=== PATIENT | female | born 1965 | race Asian ===

== ENCOUNTER 2017-01-14 21:09 | Emergency (ER) | payer OTHER ==
--- NOTE | 2017-01-14 22:04 | ED Physician Documentation ---
History of Present Illness - Stated complaint Stated Complaint: HEART PALPATATION - Chief complaint Chief Complaint: Cardiac - History obtained from History obtained from: Patient - History of Present Illness Timing: Today Pain level max: 0 Pain level now: 0 Improved by: nothing Worsened by: nothing - Additonal information Additional information: Patient was at work tonight when she felt palpitations. Lasted approx 1 minute. Has occured in the past, normally shorter and not for a year or so. States blood glucose was 99 and HR felt regular, but fast, approx 160bpm. Also had some B hand tingling. Feels normal now. No CP. Had 1 cup of coffee. Is on synthroid. Thyroid checked 2-3 weeks ago. 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, 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, Dilation and currettage - Present Medications Home Medications: Ambulatory Orders Medication Instructions Recorded Confirmed Levothyroxine [Synthroid] 75 mcg PO DAILY 01/11/15 01/11/15 Pantoprazole [Protonix] 40 mg PO DAILY #20 tablet 01/11/15 - Allergies Allergies/Adverse Reactions: Allergies Allergy/AdvReac Type Severity Reaction Status Date / Time bacitracin Allergy Rash Verified 01/14/17 21:22 [From Neosporin (gtk-wdr-cclma)] bacitracin zinc * Allergy Rash Verified 01/14/17 21:22 [From Neosporin (epl-adb-maswh)] neomycin sulfate * Allergy Rash Verified 01/14/17 21:22 [From Neosporin (lwm-hmu-ponse)] polymyxin B Allergy Rash Verified 01/14/17 21:22 [From Neosporin (gdr-ecx-xstbw)] - Social History Does the pt smoke?: No Smoking Status: Never smoker PD ED PE NORMAL - Vitals Vital signs reviewed: Yes - General General: Alert and oriented X 3, No acute distress, Well developed/nourished - HEENT HEENT: Moist mucous membranes - Neck Neck: Supple, no meningeal sign, No JVD, No bruit - Cardiac Cardiac: RRR, No murmur, Strong equal pulses - Respiratory Respiratory: No respiratory distress, Clear bilaterally - Abdomen Abdomen: Soft, Non tender - Derm Derm: Warm and dry - Extremities Extremities: No edema, No calf tenderness / cord - Neuro Neuro: Alert and oriented X 3 - Psych Psych: Normal mood, Normal affect Results - Vitals Vitals: Vital Signs - 24 hr 01/14/17 01/14/17 01/14/17 21:16 21:44 22:18 Temperature 36.7 C Heart Rate 95 90 86 Respiratory 17 16 16 Rate Blood Pressure 193/119 H 156/96 H 137/90 H O2 Saturation 98 99 99 Oxygen O2 Source Room air - EKG (time done) 2157 Rate: Rate (enter#) (77) Rhythm: NSR [place]: Normal Intervals: Normal [place] QRS: Normal Ischemia: Normal ST segments Computer interpretation: Agree with computer - Labs Labs: Laboratory Tests 01/14/17 01/14/17 01/14/17 21:31 21:31 21:31 WBC 8.7 RBC 6.08 H Hgb 12.6 Hct 40.4 MCV 66.5 L MCH 20.7 L MCHC 31.1 L RDW 16.0 H Plt Count 301 MPV 8.5 Neut # 5.2 Lymph # 2.6 [place] # 0.6 Eos # 0.2 Baso # 0.1 Absolute Nucleated RBC 0.00 Nucleated RBCs 0.0 Sodium 139 Potassium 3.4 L Chloride 102 Carbon Dioxide 28 Anion Gap 9.0 BUN 14 Creatinine 0.7 Estimated GFR (MDRD) 88 L Glucose 98 Calcium 9.2 Phosphorus 3.6 Magnesium 2.1 Total Bilirubin 0.3 AST 20 ALT 20 Alkaline Phosphatase 50 Troponin I < 0.04 Total Protein 7.5 Albumin 4.6 Globulin 2.9 Albumin/Globulin Ratio 1.6 Lipase 18 L PD MEDICAL DECISION MAKING - ED course Complexity details: reviewed results, re-evaluated patient, considered differential, d/w patient ED course: Patient is a 51-year-old female who presents to the emergency department with palpitations earlier today. This is since resolved. No chest pain. No acute findings on EKG or arrhythmias on telemetry monitoring. She states that this has happened in the past, though not for several years. We will have her follow -up with her doctor for further evaluation and care. No evidence of acute coronary syndrome or pulmonary embolus. Patient counseled regarding signs and symptoms for which I believe and urgent re-evaluation would be necessary. Patient with good understanding of and agreement to plan and is comfortable going home at this time This document was made in part using voice recognition software. While efforts are made to proofread this document, sound alike and grammatical errors may occur. Departure - Departure Disposition: Home, Self Care Clinical Impression: Palpitations Condition: Good Instructions: ED Palpitations Follow-Up: Grady Trujillo MD [Primary Care Provider] - Within 1 week Comments: The cause of your symptoms is unclear today. Return if you worsen. You need to follow-up with your doctor for further evaluation. Discharge Date/Time: 01/14/17 22:36
[2017-01-14 22:16] LABS: BASOPHILS # (AUTO) 0.1 10^3/uL (0.0-0.1); BASOPHILS % (AUTO) 0.7 %; EOSINOPHILS # (AUTO) 0.2 10^3/uL (0.0-0.7); EOSINOPHILS % (AUTO) 2.5 %; HCT - HEMATOCRIT 40.4 % (37.0-47.0); HGB - HEMOGLOBIN 12.6 g/dL (12.0-16.0); LYMPHOCYTES # (AUTO) 2.6 10^3/uL (1.5-3.5); LYMPHOCYTES % (AUTO) 30.3 %; MEAN CORPUSCULAR HEMOGLOBIN 20.7 pg (27.0-31.0); MEAN CORPUSCULAR HGB CONC 31.1 g/dL (32.0-36.0); MEAN CORPUSCULAR VOLUME 66.5 fL (81.0-99.0); MEAN PLATELET VOLUME 8.5 fL (7.9-10.8); MONOCYTES # (AUTO) 0.6 10^3/uL (0.0-1.0); MONOCYTES % (AUTO) 6.8 %; NEUTROPHILS # (AUTO) 5.2 10^3/uL (1.5-6.6); NEUTROPHILS % (AUTO) 59.7 %; RED BLOOD COUNT 6.08 10^6/uL (4.20-5.40); UNCORRECTED WHITE BLOOD COUNT 8.7 x10^3/uL; WHITE BLOOD COUNT 8.7 x10^3/uL (4.8-10.8)
[2017-01-14 22:18] VITALS: BP 137/90
[2017-01-14 22:20] LABS: ALBUMIN/GLOBULIN RATIO 1.6 (1.0-2.2); BILIRUBIN,TOTAL 0.3 mg/dL (0.2-1.0); CALCIUM 9.2 mg/dL (8.5-10.3); CREATININE 0.7 mg/dL (0.4-1.0); MAGNESIUM 2.1 mg/dL (1.7-2.8); PHOSPHORUS 3.6 mg/dL (2.5-4.6); POTASSIUM 3.4 mmol/L (3.5-5.0); TOTAL PROTEIN 7.5 g/dL (6.7-8.2)
== END 2017-01-14 22:36 | disposition home or self-care (01) ==
LOC: ED 21:09
DX: R00.2 Palpitations (principal); I10 Essential (primary) hypertension; E03.9 Hypothyroidism, unspecified; K21.9 Gastro-esophageal reflux disease without esophagitis
CPT/HCPCS: 36415; 80053; 83690; 83735; 84100; 84484; 85025; 93005; 93010; 99284

== ENCOUNTER 2017-02-25 13:09 | Outpatient (CLI) | payer OTHER | END 2017-02-25 13:10 | disposition home or self-care (01) | LOC: DI 13:09 | DX: R00.2 Palpitations (principal) | CPT/HCPCS: 93306 ==

== ENCOUNTER 2017-03-23 18:52 | Emergency (ER) | payer OTHER ==
[2017-03-23 19:09] LABS: BILIRUBIN,URINE NEGATIVE (NEGATIVE)
[2017-03-23 19:12] LABS: UA w/ MICROSCOPIC CHARGE YES
[2017-03-23 19:21] LABS: UR CULTURE IF IND INDICATED
[2017-03-23] MEDS ORDERED: SODIUM CHLORIDE 0.9% 1,000 ML IV ONE ×2 (19:37→21:21)
[2017-03-23 20:06] LABS: BASOPHILS # (AUTO) 0.1 10^3/uL (0.0-0.1); BASOPHILS % (AUTO) 0.6 %; EOSINOPHILS % (AUTO) 0.1 %; HCT - HEMATOCRIT 41.7 % (37.0-47.0); HGB - HEMOGLOBIN 12.7 g/dL (12.0-16.0); LYMPHOCYTES # (AUTO) 0.6 10^3/uL (1.5-3.5); LYMPHOCYTES % (AUTO) 3.4 %; MEAN CORPUSCULAR HEMOGLOBIN 20.3 pg (27.0-31.0); MEAN CORPUSCULAR HGB CONC 30.6 g/dL (32.0-36.0); MEAN CORPUSCULAR VOLUME 66.5 fL (81.0-99.0); MEAN PLATELET VOLUME 7.5 fL (7.9-10.8); MONOCYTES # (AUTO) 1.1 10^3/uL (0.0-1.0); MONOCYTES % (AUTO) 6.5 %; NEUTROPHILS # (AUTO) 15.3 10^3/uL (1.5-6.6); NEUTROPHILS % (AUTO) 89.4 %; RED BLOOD COUNT 6.27 10^6/uL (4.20-5.40); RED CELL DISTRIBUTION WIDTH 15.3 % (12.0-15.0); UNCORRECTED WHITE BLOOD COUNT 17.1 x10^3/uL; WHITE BLOOD COUNT 17.1 x10^3/uL (4.8-10.8)
[2017-03-23 20:11] LABS: ALBUMIN/GLOBULIN RATIO 1.5 (1.0-2.2); BILIRUBIN,TOTAL 0.6 mg/dL (0.2-1.0); CALCIUM 9.1 mg/dL (8.5-10.3); CREATININE 0.8 mg/dL (0.4-1.0); POTASSIUM 3.4 mmol/L (3.5-5.0); TOTAL PROTEIN 7.6 g/dL (6.7-8.2)
[2017-03-23 20:52] LABS: PLATELET ESTIMATE, MANUAL NORMAL (130-450,000) (NORMAL); PLATELET MORPHOLOGY RARE GIANT PLATELETS (NORMAL)
[2017-03-23 20:53] LABS: WBC MORPHOLOGY (MULTIPLE) NORMAL APPEARANCE (NORMAL)
[2017-03-23] MEDS ORDERED: cefTRIAXone 1 GM VIAL IVP STA (21:53)
--- NOTE | 2017-03-23 21:56 | XRAY Preliminary Report ---
Exam: XR Chest 2 View PA/LAT IMPRESSION: No acute disease. [facility] SITE ID: [id number]
--- NOTE | 2017-03-23 21:58 | XRAY Report ---
EXAM: CHEST RADIOGRAPHY EXAM DATE: 03/23/2017 09:38 PM. CLINICAL HISTORY: Fever. COMPARISON: 01/11/2015. TECHNIQUE: 2 views. FINDINGS: Lungs/Pleura: No localized infiltrate, consolidation, effusion, or pneumothorax. Mediastinum: Heart and mediastinal contours are unremarkable. Other: Mild scoliosis, degenerative changes, and other chronic findings. IMPRESSION: No acute disease. [facility] Referring Provider Line: [phone] SITE ID: [id number]
[2017-03-23] MEDS ORDERED: cefTRIAXone 1 GM VIAL ONE (22:01)
--- NOTE | 2017-03-23 22:05 | ED Physician Documentation ---
History of Present Illness - Stated complaint Stated Complaint: FEVER/CHILLS - Chief complaint Chief Complaint: Fever - History obtained from History obtained from: Patient - History of Present Illness Timing: Today Pain level max: 3 Pain level now: 3 Improved by: tylenol Worsened by: nothing - Additonal information Additional information: Patient is a 51-year-old female who presents to the emergency department with fevers and chills today. Also has dysuria. No cough, no rhinorrhea, no congestion. No nausea, no vomiting, no diarrhea. No abdominal pain. No recent travel. No recent antibiotics. Review of Systems Ten Systems: 10 systems reviewed and negative Constitutional: reports: Fever, Chills Ears: denies: Ear pain Nose: denies: Rhinorrhea / runny nose, Congestion Throat: denies: Sore throat Cardiac: denies: Chest pain / pressure Respiratory: denies: Cough GI: denies: Abdominal Pain, Nausea, Vomiting, Diarrhea : reports: Dysuria, Frequency, Hesitancy Skin: denies: Rash Musculoskeletal: denies: Neck pain, Back pain Neurologic: denies: Headache PD PAST MEDICAL HISTORY - Past Medical History Cardiovascular: Hypertension Endocrine/Autoimmune: HyPOthyroidism GI: GERD - Past Surgical History /[employer]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 [employer]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: section, 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, Dilation and currettage - Present Medications Home Medications: Ambulatory Orders Medication Instructions Recorded Confirmed Levothyroxine [Synthroid] 75 mcg PO DAILY 01/11/15 03/23/17 Pantoprazole [Protonix] 40 mg PO DAILY #20 tablet 01/11/15 03/23/17 Aspirin Chewable [[place] 81 mg PO DAILY 03/23/17 03/23/17 Aspirin] Cephalexin [Keflex] 500 mg PO Q6H #28 capsule 03/23/17 - Allergies Allergies/Adverse Reactions: Allergies Allergy/AdvReac Type Severity Reaction Status Date / Time bacitracin Allergy Rash Verified 01/14/17 21:22 [From Neosporin (ccz-hsc-tcsbo)] bacitracin zinc * Allergy Rash Verified 01/14/17 21:22 [From Neosporin (kpa-ird-hzsod)] neomycin sulfate * Allergy Rash Verified 01/14/17 21:22 [From Neosporin (ctp-hua-almxw)] polymyxin B Allergy Rash Verified 01/14/17 21:22 [From Neosporin (dpr-eeb-rhiik)] - Social History Does the pt smoke?: No Smoking Status: Never smoker PD ED PE NORMAL - Vitals Vital signs reviewed: Yes - General General: Alert and oriented X 3, No acute distress, Well developed/nourished - HEENT HEENT: PERRL, Ears normal, Moist mucous membranes, Pharynx benign - Neck Neck: Supple, no meningeal sign, No adenopathy - Cardiac Cardiac: RRR - Respiratory Respiratory: No respiratory distress, Clear bilaterally - Abdomen Abdomen: Soft, Non tender, Non distended - Back Back: No CVA TTP, No spinal TTP - Derm Derm: Warm and dry, No rash - Neuro Neuro: Alert and oriented X 3 - Psych Psych: Normal mood, Normal affect Results - Vitals Vitals: Vital Signs - 24 hr 03/23/17 03/23/17 03/23/17 18:54 19:28 20:42 Temperature 37.0 C 37.4 C Heart Rate 128 H 118 H 110 H Respiratory 17 22 18 Rate Blood Pressure 155/88 H 133/75 H 114/76 O2 Saturation 98 97 97 03/23/17 03/23/17 03/23/17 21:12 21:16 22:10 Temperature 37.3 C 37.2 C Heart Rate 100 101 H Respiratory 18 18 Rate Blood Pressure 123/75 124/79 O2 Saturation 100 100 Oxygen O2 Source Room air - Labs Labs: Laboratory Tests 03/23/17 03/23/17 03/23/17 18:55 19:50 19:50 WBC 17.1 H RBC 6.27 H Hgb 12.7 Hct 41.7 MCV 66.5 L MCH 20.3 L MCHC 30.6 L RDW 15.3 H Plt Count 250 MPV 7.5 L Neut # 15.3 H Lymph # 0.6 L [place] # 1.1 H Eos # 0.0 Baso # 0.1 Absolute Nucleated RBC 0.00 Nucleated RBCs 0.0 Manual Slide Review Indicated WBC Morphology NORMAL APPEARANCE Platelet Estimate NORMAL (130-450,000) Platelet Morphology RARE GIANT PLATELETS RBC Morph Micro Appear 2+ MICROCYTOSIS Sodium 139 Potassium 3.4 L Chloride 106 Carbon Dioxide 24 Anion Gap 9.0 BUN 18 Creatinine 0.8 Estimated GFR (MDRD) 75 L Glucose 180 H Calcium 9.1 Total Bilirubin 0.6 AST 29 ALT 22 Alkaline Phosphatase 58 Total Protein 7.6 Albumin 4.5 Globulin 3.1 Albumin/Globulin Ratio 1.5 Lipase 27 Urine Color YELLOW Urine Clarity CLEAR Urine pH 6.0 Ur Specific [place] <=1.005 Urine Protein NEGATIVE Urine Glucose (UA) NEGATIVE Urine Ketones NEGATIVE Urine Occult Blood SMALL H Urine Nitrite NEGATIVE Urine Bilirubin NEGATIVE Urine Urobilinogen 0.2 (NORMAL) Ur Leukocyte Esterase TRACE H Urine RBC 0-5 Urine WBC 4-5 Ur Squamous Epith Cells RARE Squamous Urine Bacteria Rare Ur Microscopic Review INDICATED Urine Culture Comments INDICATED - Rads (name of study) cxr Radiology: Prelim report reviewed, EMP read contemporaneously, See rad report ( No acute disease) PD MEDICAL DECISION MAKING - ED course Complexity details: reviewed results, re-evaluated patient, considered differential, d/w patient, d/w family ED course: Patient is well-appearing, nontoxic. Appears to have a UTI and was given Rocephin for this. Will place on antibiotics for home as well. Heart rate decreased with IV fluids. Blood pressure remained stable. Does not appear septic. Patient feels much improved. Tolerating p.o. without difficulty. Abdomen is soft, nontender nondistended on serial examination. Patient and family counseled regarding signs and symptoms for which I believe and urgent re- evaluation would be necessary. Patient with good understanding of and agreement to plan and is comfortable going home at this time This document was made in part using voice recognition software. While efforts are made to proofread this document, sound alike and grammatical errors may occur. Departure - Departure Disposition: 01 Home, Self Care Clinical Impression: Fever Qualifiers: Fever type: unspecified Qualified Code(s): R50.9 - Fever, unspecified UTI (urinary tract infection) Qualifiers: Urinary tract infection type: acute cystitis Hematuria presence: without hematuria Qualified Code(s): N30.00 - Acute cystitis without hematuria Condition: Good Instructions: ED Fever Unconf Cause, ED UTI Cystitis Female Follow-Up: Grady Trujillo MD [Primary Care Provider] - Within 1 week Prescriptions: Cephalexin [Keflex] 500 mg PO Q6H #28 capsule Comments: Take all antibiotics until gone. Return if you worsen. Forms: Activity restrictions Discharge Date/Time: 03/23/17 22:45
[2017-03-23 22:11] VITALS: BP 124/79
== END 2017-03-23 22:45 | disposition home or self-care (01) ==
LOC: ED 18:52
DX: R50.9 Fever, unspecified (principal); N30.00 Acute cystitis without hematuria; I10 Essential (primary) hypertension; Z79.82 Long term (current) use of aspirin
CPT/HCPCS: 36415; 71020; 80053; 81001; 81003; 83690; 85025; 87077; 87086; 96361; 96374; 99283; 99284

== ENCOUNTER 2017-12-21 12:58 | Outpatient (CLI) | payer OTHER | END 2017-12-21 12:59 | disposition home or self-care (01) | LOC: DI 12:58 | PROVIDERS: ATTEND Family Medicine | DX: R01.1 Cardiac murmur, unspecified (principal); G47.30 Sleep apnea, unspecified; R03.0 Elevated blood-pressure reading, without diagnosis of hypertension | CPT/HCPCS: 93306 ==

== ENCOUNTER 2018-01-12 10:48 | Outpatient (CLI) | payer OTHER | END 2018-01-12 10:49 | disposition home or self-care (01) | LOC: SC 10:48 | PROVIDERS: ATTEND Nurse Practitioner Family | DX: G47.10 Hypersomnia, unspecified (principal); R06.83 Snoring; R53.83 Other fatigue; R03.0 Elevated blood-pressure reading, without diagnosis of hypertension | CPT/HCPCS: 99204 ==

== ENCOUNTER 2018-03-02 20:44 | Outpatient (CLI) | payer OTHER | END 2018-03-02 20:45 | disposition home or self-care (01) | LOC: SC 20:44 | PROVIDERS: ATTEND Internal Medicine Pulmonary Disease | DX: G47.33 Obstructive sleep apnea (adult) (pediatric) (principal) | CPT/HCPCS: 95810 ==

== ENCOUNTER 2018-04-04 11:15 | Outpatient (CLI) | payer OTHER | END 2018-04-04 11:16 | disposition home or self-care (01) | LOC: SC 11:15 | PROVIDERS: ATTEND Nurse Practitioner Family | DX: G47.33 Obstructive sleep apnea (adult) (pediatric) (principal) | CPT/HCPCS: 99212; 99214 ==

== ENCOUNTER 2018-05-06 12:05 | Emergency (ER) | payer OTHER ==
[2018-05-06 12:25] VITALS: BP 153/84
--- NOTE | 2018-05-06 13:21 | ED Physician Documentation ---
PD HPI SKIN - Stated complaint Stated Complaint: RT EYE SWELLING/WOUND - Chief complaint Chief Complaint: Wound - History obtained from History obtained from: Patient - History of Present Illness Timing - onset: How many days ago (5) Timing - duration: Days (5) Timing - details: Gradual onset, Still present Location: Face Quality / character: Itchy, Burning, Vesicular, Crusted Associated symptoms: Myalgias, Facial swelling. 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 She has minimal surrounding erythema and she does have some swelling in front of her right ear. 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, 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, Dilation and currettage - Present Medications Home Medications: Ambulatory Orders Medication Instructions Recorded Confirmed Levothyroxine [Synthroid] 75 mcg PO DAILY 01/11/15 05/06/18 Aspirin Chewable [[place] 81 mg PO DAILY 03/23/17 05/06/18 Aspirin] Metoprolol Succinate 25 mg DAILY 05/06/18 05/06/18 [place]-3/Dha/Epa/Fish Oil [Fish Oil 1 cap DAILY 05/06/18 05/06/18 1,000 mg Softgel] - Allergies Allergies/Adverse Reactions: Allergies Allergy/AdvReac Type Severity Reaction Status Date / Time bacitracin Allergy Rash Verified 01/14/17 21:22 [From Neosporin (oqx-caj-gxcum)] bacitracin zinc * Allergy Rash Verified 01/14/17 21:22 [From Neosporin (ode-tto-gplyz)] neomycin sulfate * Allergy Rash Verified 01/14/17 21:22 [From Neosporin (hay-pul-wexfs)] polymyxin B Allergy Rash Verified 01/14/17 21:22 [From Neosporin (jzy-mad-pnnde)] - Social History Does the pt smoke?: No Smoking Status: Never smoker PD ED PE NORMAL - Vitals Vital signs reviewed: Yes (hypertensive ) - General General: Alert and oriented X 3, No acute distress, Well developed/nourished Results - Vitals Vitals: Vital Signs - 24 hr 05/06/18 12:21 Temperature 36.9 C Heart Rate 72 Respiratory 16 Rate Blood Pressure 153/84 H O2 Saturation 100 Oxygen O2 Source Room air PD MEDICAL DECISION MAKING - ED course Complexity details: considered differential, d/w patient ED course: 52-year-old female with what appears to be shingles to the right sikh appears to be about 5 days into the course she seems to be recovering well from this is bothered very little by this. She does have some preauricular lymphadenitis and I suspect her condition is herpes zoster. At day #5 specific antiviral therapy is not indicated. - Sepsis Event Vital Signs: Vital Signs - 24 hr 05/06/18 12:21 Temperature 36.9 C Heart Rate 72 Respiratory 16 Rate Blood Pressure 153/84 H O2 Saturation 100 Oxygen O2 Source Room air Departure - Departure Disposition: 01 Home, Self Care Clinical Impression: Zoster Qualifiers: Herpes zoster complications: without complications Qualified Code(s): B02.9 - Zoster without complications Instructions: ED Shingles Follow-Up: TD WRIGHT DO [Primary Care Provider] - Comments: Today in the Emergency Department your blood pressure was elevated. This can happen from the stress of the visit itself, from a current illness or circumstance or from uncontrolled hypertension. If you take blood pressure medications take your usual mediations, have your blood pressure re-checked in an appropriate setting and follow up any elevation with your primary care doctor.
== END 2018-05-06 13:32 | disposition home or self-care (01) ==
LOC: ED 12:05
DX: B02.9 Zoster without complications (principal); I10 Essential (primary) hypertension; E03.9 Hypothyroidism, unspecified; Z79.82 Long term (current) use of aspirin
CPT/HCPCS: 99282; 99283

== ENCOUNTER 2019-02-10 00:05 | Emergency (ER) | payer OTHER ==
[2019-02-10] MEDS ORDERED: RALTEGRAVIR 400 MG TABLET PO STA (02:15)
[2019-02-10] MEDS ORDERED: lamiVUDine/ZIDOVUDINE 150 MG/300 MG TABLET PO STA (02:15)
--- NOTE | 2019-02-10 02:17 | ED Physician Documentation ---
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 She then noticed that a suture needle was on the back of her phone where there is a small magnet. she believes the suture had slipped out of a sharps container in the ED and became attracted to the magnet on her phone. She is UTD on immunizations including hepatitis B series. It is unknown if the suture was used and, if so, who it was used on. 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, Dilation and currettage - Present Medications Home Medications: Ambulatory Orders Medication Instructions Recorded Confirmed Levothyroxine [Synthroid] 75 mcg PO DAILY 01/11/15 05/06/18 Aspirin Chewable [[place] 81 mg PO DAILY 03/23/17 05/06/18 Aspirin] Metoprolol Succinate 25 mg DAILY 05/06/18 05/06/18 [place]-3/Dha/Epa/Fish Oil [Fish Oil 1 cap DAILY 05/06/18 05/06/18 1,000 mg Softgel] Emtricitabine/Tenofovir [Truvada 1 each PO DAILY #2 tablet 02/10/19 200 mg-300 mg Tablet] Raltegravir [Isentress] 400 mg PO BID #5 tablet 02/10/19 - Allergies Allergies/Adverse Reactions: Allergies Allergy/AdvReac Type Severity Reaction Status Date / Time bacitracin Allergy Rash Verified 01/14/17 21:22 [From Neosporin (anx-dnl-ykold)] bacitracin zinc * Allergy Rash Verified 01/14/17 21:22 [From Neosporin (ahd-lgb-eorsj)] neomycin sulfate * Allergy Rash Verified 01/14/17 21:22 [From Neosporin (jzo-hwr-msuoh)] polymyxin B Allergy Rash Verified 01/14/17 21:22 [From Neosporin (thj-qtn-latvo)] - Social History Does the pt smoke?: No Smoking Status: Never smoker Does the pt drink ETOH?: No Does the pt have substance abuse?: No - Immunizations Immunizations are current?: Yes PD ED PE NORMAL - Vitals Vital signs reviewed: Yes - General General: Alert and oriented X 3, No acute distress, Well developed/nourished - Derm Derm: Normal color, Warm and dry, Other (tiny puncture right third digit fingertip without bleeding or tenderness) Results - Vitals Vitals: Vital Signs - 24 hr 02/10/19 02/10/19 00:08 02:47 Temperature 37.0 C Heart Rate 73 70 Respiratory 18 18 Rate Blood Pressure 150/90 H 154/92 H O2 Saturation 97 99 Oxygen O2 Source Room air - Labs Labs: Laboratory Tests 02/10/19 02/10/19 00:25 02:25 WBC 7.2 RBC 5.89 H Hgb 12.5 Hct 39.8 MCV 67.6 L MCH 21.2 L MCHC 31.4 L RDW 15.6 H Plt Count 301 MPV 7.4 L Sodium 141 Potassium 3.7 Chloride 103 Carbon Dioxide 27 Anion Gap 11.0 BUN 18 Creatinine 0.7 Estimated GFR (MDRD) 87 L Glucose 113 H Calcium 10.0 Total Bilirubin 0.7 AST 25 ALT 31 Alkaline Phosphatase 54 Total Protein 7.8 Albumin 4.5 Globulin 3.3 Albumin/Globulin Ratio 1.4 PD MEDICAL DECISION MAKING - ED course Complexity details: considered differential, d/w patient ED course: Discussed risks and benefits of HIV prophylaxis, and patient wants HIV prophylaxis medication. This was given in ED and rx provided for 3 days, and she is to f/u w/ [facility] on Tuesday Departure - Departure Disposition: Home, Self Care Clinical Impression: Needle stick injury of finger Qualifiers: Encounter type: initial encounter Qualified Code(s): S61.239A - Puncture wound without foreign body of unspecified finger without damage to nail, initial encounter Condition: Good Instructions: ED Body Fluid Exp HC Worker Follow-Up: TD WRIGHT DO [Primary Care Provider] - Prescriptions: Emtricitabine/Tenofovir [Truvada 200 mg-300 mg Tablet] 1 each PO DAILY #2 tablet Raltegravir [Isentress] 400 mg PO BID #5 tablet Discharge Date/Time: 02/10/19 02:50
[2019-02-10 02:33] LABS: ALBUMIN 4.5 g/dL (3.2-5.5); ALBUMIN/GLOBULIN RATIO 1.4 (1.0-2.2); BILIRUBIN,TOTAL 0.7 mg/dL (0.2-1.0); CREATININE 0.7 mg/dL (0.4-1.0); TOTAL PROTEIN 7.8 g/dL (6.7-8.2)
[2019-02-10 02:36] LABS: HGB - HEMOGLOBIN 12.5 g/dL (12.0-16.0); MEAN CORPUSCULAR HEMOGLOBIN 21.2 pg (27.0-31.0); MEAN CORPUSCULAR HGB CONC 31.4 g/dL (32.0-36.0); MEAN CORPUSCULAR VOLUME 67.6 fL (81.0-99.0); MEAN PLATELET VOLUME 7.4 fL (7.9-10.8); RED BLOOD COUNT 5.89 10^6/uL (4.20-5.40); RED CELL DISTRIBUTION WIDTH 15.6 % (12.0-15.0); WHITE BLOOD COUNT 7.2 x10^3/uL (4.8-10.8)
[2019-02-10 02:48] VITALS: BP 154/92
[2019-02-12 15:06] LABS: HEPATITIS C ANTIBODY NON-REACTIVE (NON-REACTIVE)
[2019-02-12 16:16] LABS: HIV AG/AB 4TH GEN NON-REACTIVE (NON-REACTIVE)
== END 2019-02-10 02:50 | disposition home or self-care (01) ==
LOC: ED 00:05
DX: S61.232A Puncture wound without foreign body of right middle finger without damage to nail, initial encounter (principal); Z77.21 Contact with and (suspected) exposure to potentially hazardous body fluids; W46.1XXA Contact with contaminated hypodermic needle, initial encounter; Y93.89 Activity, other specified; Y92.239 Unspecified place in hospital as the place of occurrence of the external cause; I10 Essential (primary) hypertension
CPT/HCPCS: 80053; 85027; 86317; 86803; 87389; 99282; 99283; A9270; 36415

== ENCOUNTER 2019-04-12 09:54 | Day surgery (SDC) | payer BC, OTHER ==
[2019-04-12] MEDS ORDERED: LACTATED RINGERS 1,000 ML IV ONE (10:31)
[2019-04-12] MEDS ORDERED: fentaNYL 100 MCG/2 ML VIAL IVP ONE (12:12)
[2019-04-12] MEDS ORDERED: MIDAZOLAM 2 MG/2 ML VIAL IVP ONE (12:12)
[2019-04-12 13:09] VITALS: BP 107/65
== END 2019-04-12 09:55 | disposition home or self-care (01) ==
LOC: SDS 09:54
PROVIDERS: ATTEND Surgery
PROC: 0DJD8ZZ Inspection of Lower Intestinal Tract, Via Natural or Artificial Opening Endoscopic (ICD-10-PCS; principal; 2019-04-12 11:15)
DX: Z12.11 Encounter for screening for malignant neoplasm of colon (principal); K64.8 Other hemorrhoids; G47.30 Sleep apnea, unspecified; Z86.010 Personal history of colon polyps
CPT/HCPCS: 45378; J7120

== ENCOUNTER 2019-07-16 12:47 | Outpatient (CLI) | payer BC, OTHER ==
--- NOTE | 2019-07-16 13:41 | SLEEP CARE CONSULTATION ---
Information from patient questionnaire entered by Zofia Perla. I have reviewed and concur with the information entered by Zofia Perla. This document represents the service I personally performed and the decisions made by me, Mariana Dawson, RN, MSN, [employer]. History of Present Illness Previous diagnosis: Mild, Obstructive Sleep Apnea-Hypopnea Syndrome AHI: 8.6 Reason for follow up: annual (She was set up right away but just informed of her compliance goals from [facility] and set up appointment. ) Equipment type: CPAP Equipment obtained from: [employer] Mask style: Nasal pillows Backup mask available: Yes Last cushion change: a few weeks ago Prior sleep studies: Yes CPAP Compliance Data - Data Reviewed with Patient Average duration of nightly device use: 6h 57m Compliance rate %: 96.7 Current pressure setting (cmH2O): 4-15 Humidity settin Heated hose settin Average residual AHI: 0.7 (90% pressure of 6.9cmH20) Average large leak: 18s Subjective Patient concerns: reports: other (When has had a cold, it is hard to use CPAP ). denies: aerophagia, mask discomfort, air blowing in eyes, mask leak noise, condensation in mask/hose, nasal congestion, dry mouth, nose, throat, epistaxis Observed to snore while using device: No Current pressure setting perceived as: comfortable On therapy, patient: reports: sleeping better, awakening more refreshed, being more awake and alert during the day, more rested overall. denies: drowsiness while driving Initial [place] Sleepiness Scale score: 8 Current [place] Sleepiness Scale score: 3 Allergies and Home Medications Known drug allergies: Yes (bacitracin topical, neomycin ) Home medication list reviewed: Yes Allergy and home medication list: Medication Name (generic/name brand) Strength & Dosage Synthroid 75mcg tab one daily Aspirin 81mg tab one daily Zyrtec 10mg tab one daily for allergies, prn Benadryl 25mg tab, prn Multivitamins Tab one daily Celebrex 200mg tab one daily, prn Flonase nasal spray 50mcg 1-2 sprays daily seasonally Fish Oil One tab daily Metoprolol Succinate 25mg tab one daily Review of Systems Review of systems same as previous: Yes Physical Exam Blood Pressure: 120/80 Cuff size: regular Heart Rate: 74 O2 Saturation: 98 Height: 5 ft 2.25 in Weight: 128 lb 12.8 oz Weight change since last visit: gained 2 pounds Body Mass Index: 23.3 BMI Classification: Healthy weight Impression and Plan 1. Obstructive Sleep Apnea-Hypopnea Syndrome, mild, with good treatment compliance and good apnea control. On CPAP therapy, the patient has better sleep quality and is more rested overall. Since 90% average pressure is 6.9cmH20, I will change her CPAP pressure to 7cmH20. She was shown to use the ramp at initiation if needed. If pressure uncomfortable, she is to call me. To improve use of CPAP when nasal congestion such as a cold or allergies, she is advised to use her saline nasal spray to clear nose of dried secretions prior to CPAP use to clear nose of dried secretions and faciltate nasal breathing. In addition, she can use a steamy shower to facilitate nasal drainage. Supply replacement list reviewed and questions answered. Patient's apnea severity and rationale for treatment to reduce apnea, improve sleep quality and reduce cardiovascular and cerebrovascular events was reviewed. I also reviewed the benefit of consistent device use of CPAP for arrhythmia. Since her apnea is more severe supine, she is advised to avoid supine sleep with pillow positioning. * * Change CPAP pressure to 7 cmH2O * implement methods to reduce nasal congestion * Notify me if snoring with mask or feeling that the pressure is too much or too little * Attempt to lose weight * Return for follow up in 1year , or sooner if concerns arise I spent 100% of this 30 minute visit face to face with the patient with greater than 50% of this was spent time counseling the patient and coordination of care.
[2019-07-16 13:42] VITALS: BP 120/80
== END 2019-07-16 12:48 | disposition home or self-care (01) ==
LOC: SC 12:47
PROVIDERS: ATTEND Nurse Practitioner Family
DX: G47.33 Obstructive sleep apnea (adult) (pediatric) (principal)
CPT/HCPCS: 99212; 99214

== ENCOUNTER 2019-08-09 23:44 | Outpatient (CLI) | payer OTHER, BC ==
[2019-08-11 12:01] LABS: HEPATITIS B SURFACE AB QN IMM 17 mIU/mL (> OR = 10); HEPATITIS C ANTIBODY NON-REACTIVE (NON-REACTIVE)
[2019-08-13 16:00] LABS: HIV AG/AB 4TH GEN NON-REACTIVE (NON-REACTIVE)
== END 2019-08-09 23:45 | disposition home or self-care (01) ==
LOC: LAB 23:44
PROVIDERS: ATTEND Internal Medicine
DX: Z57.9 Occupational exposure to unspecified risk factor (principal)
CPT/HCPCS: 36415; 86317; 86803; 87389

== ENCOUNTER 2020-02-07 17:46 | Outpatient (CLI) | payer OTHER, BC ==
[2020-02-08 12:40] LABS: HIV AG/AB 4TH GEN NON-REACTIVE (NON-REACTIVE)
[2020-02-08 13:06] LABS: HEPATITIS B SURFACE AB QN IMM 7 mIU/mL (> OR = 10); HEPATITIS C ANTIBODY NON-REACTIVE (NON-REACTIVE)
== END 2020-02-07 17:47 | disposition home or self-care (01) ==
LOC: LAB 17:46
PROVIDERS: ATTEND Emergency Medicine
DX: T75.89XA Other specified effects of external causes, initial encounter (principal)
CPT/HCPCS: 36415; 86317; 86803; 87389

== ENCOUNTER 2020-08-11 11:36 | Outpatient (CLI) | payer BC, OTHER ==
--- NOTE | 2020-08-11 12:58 | SLEEP CARE CONSULTATION ---
Information from patient questionnaire entered by Edie Steele. I have reviewed and concur with the information entered by Edie Steele. This document represents the service I personally performed and the decisions made by me, Arcelia Thompson MD, [facility]. History of Present Illness Service Date and Time: 08/11/2020 1136 Previous diagnosis: Mild, Obstructive Sleep Apnea-Hypopnea Syndrome AHI: 8.6 (in 2018) Reason for follow up: annual (last seen 06/2019) Equipment type: CPAP Equipment obtained from: [employer] Mask style: Nasal pillows Prior sleep studies: Yes Year and [facility] HPI additional information: HPI: Ms. Gonzalez was returns today to follow up on the nasal CPAP therapy. She was diagnosed to have mild obstructive sleep apnea-hypopnea syndrome. The patient wears nasal pillows. She reports using the device nightly and all through the night. The compliance data show usage in 171 out of the past 180 nights, averaging 6.2 hours a night. The > 4 hour compliance rate for the past 180 days is 89.4%. She complained of no particular problem with the device such as soreness on the face, dry nose, epistaxis, nasal congestion or headache. She thinks that the pressure 7 cmH2O is comfortable. On the CPAP therapy she notices improvement in her sleep quality, and that she wakes up feeling fresher in the morning and more awake/alert during the day. The [place] Sleepiness Sca le score 3. Her notices no snore at all. He uses a CPAP as well. The average residual AHI is 0.9; and average time in large leak per day, 1 minute. CPAP Compliance Data - Data Reviewed with Patient Average duration of nightly device use: 6 hr 14 min Compliance rate %: 89.4 (180 days) Current pressure setting (cmH2O): 7 Humidity settin Heated hose settin Average residual AHI: 0.9 Average large leak: 1 min 4 sec Subjective Missed days of use due to: reports: travel Patient concerns: reports: dry mouth, nose, throat Current pressure setting perceived as: comfortable Initial [place] Sleepiness Scale score: 8 (in 2018) Current [place] Sleepiness Scale score: 3 Allergies and Home Medications Drug allergies reviewed: Yes Home medication list reviewed: Yes Review of Systems Review of systems same as previous: Yes Physical Exam Vital signs obtained and entered by: To minimize the risk of COVID-19 exposure, detailed exam was not performed. Height: 5 ft 2.25 in Weight: 128 lb Weight change since last visit: +6 Body Mass Index: 23.2 BMI Classification: Healthy weight Impression and Plan IMPRESSION: 1. Obstructive Sleep Apnea-Hypopnea Syndrome, mild (AHI was 8.6 in 2018) with the patient doing well on nasal CPAP therapy. She continues to have excellent compliance and significant clinical improvement. The current pressure appears effective and comfortable. Her mask fits well. Overall, she is very satisfied with treatment and plans to continue with it long-term. Because the residual AHI is very low, I will lower the pressure a little. PLAN: 1. Device set to autoCPAP mode with pressure range 5 - 7 cmH2O via the modem. 2. Try [employer]Med N30i mask and P30i nasal pillows. 4. Return in one year for follow up or earlier if there is any problem with the treatment. Visit Type: In Office Time Spent with Patient (minutes): 15 Provider Statement: I spent 100% of the Face to Face Visit with the patient with greater than 50% spent counseling the patient and coordination of care.
== END 2020-08-11 11:37 | disposition home or self-care (01) ==
LOC: SC 11:36
PROVIDERS: ATTEND Internal Medicine Pulmonary Disease
DX: G47.33 Obstructive sleep apnea (adult) (pediatric) (principal)
CPT/HCPCS: 99212; 99213

== ENCOUNTER 2021-12-29 08:56 | Outpatient (CLI) | payer BC, OTHER ==
--- NOTE | 2022-01-05 16:06 | Mammography Report ---
BILATERAL DIGITAL SCREENING MAMMOGRAM 3D/2D: 12/29/2021 CLINICAL: Family history of breast cancer. Routine screening. No prior exams were available for comparison. There are scattered fibroglandular elements in both br easts. No significant masses, calcifications, or other findings are seen in either breast. IMPRESSION: NEGATIVE There is no mammographic evidence of malignancy. A 1 year screening mammogram is recommended. This exam was interpreted at Station ID: [id number]. NOTE: For mammograms, a report in lay terms will be sent to the patient. Approximately 15% of breast malignancies will not be visualized mammographically. In the management of a palpable breast mass, a negative mammogram must not discourage biopsy of a clinically suspicious lesion. Electronically Signed By: Rowan noble/michael:01/05/2022 10:41:04 ACR BI-RADS Category 1: Negative 3341F PARENCHYMAL PATTERN: (A) - The breast(s) demonstrate(s) scattered fibroglandular densities. BI-RADS CATEGORY: (1) - 1 RECOMMENDATION: (ANNUAL) - Recommend routine annual screening mammography. [id number] 1 year screening LATERALITY: (B)
== END 2021-12-29 08:57 | disposition home or self-care (01) ==
LOC: DI.N 08:56
DX: Z12.31 Encounter for screening mammogram for malignant neoplasm of breast (principal); Z80.3 Family history of malignant neoplasm of breast

== ENCOUNTER 2022-09-20 13:07 | Outpatient (CLI) | payer BC, OTHER ==
[2022-09-20 18:08] VITALS: BP 150/84
--- NOTE | 2022-09-20 18:08 | SLEEP CARE CONSULTATION ---
Information from patient questionnaire entered by Valentin Villa. I have reviewed and concur with the information entered by Valentin Villa. This document represents the service I personally performed and the decisions made by me, Arcelia Thompson MD, [facility]. History of Present Illness Service Date and Time: 09/20/2022 1307 Previous diagnosis: Mild, Obstructive Sleep Apnea-Hypopnea Syndrome AHI: 8.6 (in 2018) Reason for follow up: annual (LAST SEEN 07/2020) Equipment type: CPAP (PEREZ) Equipment obtained from: [employer] Mask style: Nasal pillows Prior sleep studies: Yes Year and Where: 2017 - [facility] HPI additional information: Ms. Gonzalez was returns today to follow up on the nasal CPAP therapy. She was diagnosed to have mild obstructive sleep apnea-hypopnea syndrome. The patient wears nasal pillows. She reports using the device nightly and all through the night. The compliance data show usage in 170 out of the past 180 nights, averaging 6.9 hours a night. The > 4 hour compliance rate for the past 180 days is 98.4%. She complained of no particular problem with the device such as soreness on the face, dry nose, epistaxis, nasal congestion or headache. She thinks that the pressure 5 - 7 cmH2O is comfortable. On the CPAP therapy she notices improvement in her sleep quality, and that she wakes up feeling fresher in the morning and more awake/alert during the day. The [place] Sleepiness Sc jacob score 4. Her notices no snore at all. He uses a CPAP as well. The average residual AHI is 1.3; and average time in large leak per day, 10 seconds. Her equipment comes from [employer]. Sleep Study - Results Prior sleep studies: Yes Year and Where: 2018 - [facility] Sleep CPAP Compliance Data - Data Reviewed with Patient Average duration of nightly device use: 6HRS 56MIN 15SEC Compliance rate %: 99.4 (03/20/2022-09/15/22) Current pressure setting (cmH2O): 5-7 Average residual AHI: 1.3 Subjective Initial [place] Sleepiness Scale score: 8 (in 2018) Current [place] Sleepiness Scale score: 4 (09/20/22) Allergies and Home Medications Drug allergies reviewed: Yes Home medication list reviewed: Yes Allergy and home medication list: Allergies bacitracin [From Neosporin ([id number])] Allergy (Verified 04/12/19 10:21) Rash bacitracin zinc * [From Neosporin ([id number])] Allergy (Verified 04/12/19 10:21) Rash neomycin sulfate * [From Neosporin ([id number])] Allergy (Verified 04/12/19 10:21) Rash polymyxin B [From Neosporin ([id number])] Allergy (Verified 04/12/19 10:21) Rash Review of Systems Review of systems same as previous: Yes Physical Exam Vital signs obtained and entered by: VALENTIN Goodman MA Blood Pressure: 150/84 (LEFT ARM) Cuff size: regular Heart Rate: 86 O2 Saturation: 98 Height: 5 ft 2.25 in Weight: 125 lb 12.8 oz Body Mass Index: 22.8 BMI Classification: Normal Impression and Plan IMPRESSION: 1. Obstructive Sleep Apnea-Hypopnea Syndrome, mild (AHI was 8.6 in 2018) with the patient doing well on nasal CPAP therapy. She continues to have excellent compliance and significant clinical improvement. The current pressure appears effective and comfortable. Her mask fits well. Overall, she is very satisfied with treatment and plans to continue with it long-term. PLAN: 1. Leave the autoCPAP at 5 - 7 cmH2O. 2. Prescription made for supplies through [employer]. 4. Return in one year for follow up or earlier if there is any problem with the treatment. Follow up with Sleep Care in: 1 year Visit Type: In Office Time Spent with Patient (minutes): 15 Provider Statement: I spent 100% of the Face to Face Visit with the patient with greater than 50% spent counseling the patient and coordination of care.
== END 2022-09-20 13:08 | disposition home or self-care (01) ==
LOC: SC 13:07
PROVIDERS: ATTEND Internal Medicine Pulmonary Disease
DX: G47.33 Obstructive sleep apnea (adult) (pediatric) (principal)
CPT/HCPCS: 99212

== ENCOUNTER 2022-11-15 23:11 | Outpatient (CLI) | payer BC, OTHER ==
[2022-11-16 00:55] LABS: CALCIUM 9.4 mg/dL (8.5-10.3); CREATININE 0.7 mg/dL (0.4-1.0); MAGNESIUM 2.4 mg/dL (1.7-2.8); POTASSIUM 3.4 mmol/L (3.5-5.0)
== END 2022-11-15 23:12 | disposition home or self-care (01) ==
LOC: LAB 23:11
PROVIDERS: ATTEND Internal Medicine Cardiovascular Disease
DX: R00.2 Palpitations (principal)
CPT/HCPCS: 36415; 80048; 83735